=== PATIENT | female | born 1970 | race Caucasian/White ===

== ENCOUNTER 2018-06-26 11:48 | Emergency (ER) | payer SELFPAY ==
[~2018-06-26] VITALS: Wt 81.0 kg
[2018-06-26 12:01] VITALS: BP 140/70; PULSE 78; RESP 18
--- NOTE | 2018-06-26 13:34 | ERD ---
ER Documentation Chief Complaint Chief Complaint HEAD PAIN AFTER OXYGEN TANK FELL ON HEAD HPI This is a 48-year-old female presents for evaluation of head pain after an oxygen tank fell on her. She had no loss of consciousness, endorses pain on the left side of her head, and feels somewhat dizzy. She is not on blood thinners, otherwise healthy. ROS All systems reviewed and are negative except as per history of present illness. Physical Exam Vitals Vital Signs Date Temp Pulse Resp B/P (MAP) Pulse Ox O2 O2 Flow FiO2 Time Delivery Rate 06/26/18 98.0 78 18 140/70 98 12:01 (93) Physical Exam Const: No acute distress Head: Atraumatic Eyes: Normal Conjunctiva ENT: Normal External Ears, Nose and Mouth. Neck: Full range of motion. No meningismus. Resp: Clear to auscultation bilaterally Cardio: Regular rate and rhythm, no murmurs Abd: Soft, non tender, non distended. Normal bowel sounds Skin: No petechiae or rashes Back: No midline or flank tenderness Ext: No cyanosis, or edema Neur: Neuro: M/S: Alert and oriented Face: EOMI, face and pharynx with normal sensation and function Motor: Normal strength throughout Sensation: Normal sensation throughout Speech: Normal Cerebel: Normal coordination Normal gait Normal finger to nose DTR: 2+ and symmetric upper/lower extremities Psych: Normal Mood and Affect Procedures/MDM 48-year-old female presents for relation of head trauma, also with some dizziness post head trauma. Suspect most likely mild concussion, her CT brain was negative for acute findings, discussed findings with patient and she is stable for discharge home at discharge she was in no acute distress. Departure Diagnosis: Primary Impression: Acute head injury Encounter type: initial encounter Qualified Codes: S09.90XA - Unspecified injury of head, initial encounter Condition: JEANNETTE Roberts MD Jun 26, 2018 13:34
== END 2018-06-26 14:01 | disposition home or self-care (01) ==
LOC: FTE 11:48
DX: S09.90XA Unspecified injury of head, initial encounter (principal); R51 Headache; W20.8XXA Other cause of strike by thrown, projected or falling object, initial encounter; Y92.9 Unspecified place or not applicable
CPT/HCPCS: 70450